=== PATIENT | female | born 1930 | race Caucasian/White ===

== ENCOUNTER 2016-09-17 16:23 | Emergency (ER) | payer OTHER ==
[2016-09-17 16:39] VITALS: BP 167/87; PULSE 99; TEMP 98.1; BMI 19.9
--- NOTE | 2016-09-17 16:45 | PDOC ---
History of Present Illness - General History Source: Family, [facility] Records Exam Limitations: No Limitations <Cedrick William - Last Filed: 09/17/16 18:46> - History of Present Illness Initial Comments: 09/17/16 16:48 Patient is an 85 year old female with significant medical hx of dementia, HTN, HLD, AFib (on coumadin), CAD s/p CABG, CKD, CHF, GERD, prior CVA, two cerebral aneurysms (no surgery), seizure disorder, and hypothyroidism who is presenting to the ED via EMS from [facility] s/p fall. The patient tripped and fell, hitting her head on the floor of the [facility]. She was observed to have blood coming out of her nostril. The patient complains of pain to the bridge of her nose where she sustained a small abrasion. Patient also endorses some dizziness and lightheadedness prior to fall. Denies any LOC or chest pain. Patient was sent to the ED for head CT to r/o head trauma. Patient's last coumadin check was on 09/15 and was found at 2.3. Surgical Hx: aortic bypass graft <Darleen Howard - Last Filed: 09/17/16 19:05> - General Chief Complaint: Injury Stated Complaint: FALL Time Seen by Provider: 09/17/16 16:34 Past History - Past Medical History Cardiac Disorders: Yes (afib, cad) Dementia: Yes HTN: Yes Hypercholesterolemia: Yes Psychiatric Problems: Yes Seizures: Yes Thyroid Disease: Yes - Surgical History Cardiac Surgery: Yes (aortic bypass graft) - Psycho/Social/Smoking Cessation Hx Anxiety: No Suicidal Ideation: No Smoking History: Never smoked Have you smoked in the past 12 months: No Information on smoking cessation initiated: No Hx Alcohol Use: No Drug/Substance Use Hx: No <Cedrick William - Last Filed: 09/17/16 18:46> <Darleen Howard - Last Filed: 09/17/16 19:05> - Past Medical History Allergies/Adverse Reactions: Allergies Allergy/AdvReac Type Severity Reaction Status Date / Time amlodipine besylate Allergy Verified 12/16/15 16:44 [From [facility]] atenolol Allergy Verified 12/16/15 16:43 codeine Allergy Verified 12/16/15 16:43 morphine Allergy Verified 12/16/15 16:43 nifedipine Allergy Verified 12/16/15 16:43 ramipril Allergy Verified 12/16/15 16:43 Home Medications: Ambulatory Orders Acetaminophen [Pain Relief] 650 mg PO DAILY 12/16/15 Divalproex *ER* [Depakote *ER* -] 250 mg PO BID 12/16/15 Docusate Sodium [Colace -] 200 mg PO HS 12/16/15 Hydralazine HCl [Apresoline -] 25 mg PO DAILY 12/16/15 Levetiracetam [Keppra] 500 mg PO BID 12/16/15 Levothyroxine [Synthroid -] 150 mcg PO DAILY 12/16/15 Mirtazapine 15 mg PO HS 12/16/15 Multivitamin [Poly-Vitamin] 1 each PO DAILY 12/16/15 Pantoprazole Sodium [Protonix] 40 mg PO DAILY 12/16/15 Simvastatin [Zocor -] 40 mg PO HS 12/16/15 Warfarin Sodium [Coumadin] 1 mg PO HS 12/16/15 Review of Systems - Review of Systems Comments:: 09/17/16 17:49 ROS By son: GENERAL/CONSTITUTIONAL: Fall. No fever or chills. No weakness. HEAD, EYES, EARS, NOSE AND THROAT: Pain to the bridge of the nose. No change in vision. No ear pain or discharge. No sore throat. CARDIOVASCULAR: No chest pain or shortness of breath. RESPIRATORY: No cough, wheezing, or hemoptysis. GASTROINTESTINAL: No nausea, vomiting, diarrhea or constipation. GENITOURINARY: No dysuria, frequency, or change in urination. MUSCULOSKELETAL: No joint or muscle swelling or pain. No neck or back pain. SKIN: No rash NEUROLOGIC: No headache, vertigo, loss of consciousness, or change in strength/ sensation. <Darleen Howard - Last Filed: 09/17/16 19:05> *Physical Exam - Vital Signs Last Vital Signs Temp Pulse Resp BP Pulse Ox 98.1 F 99 H 20 167/87 100 09/17/16 16:37 09/17/16 16:37 09/17/16 16:37 09/17/16 16:37 09/17/16 16:37 <Cedrick William - Last Filed: 09/17/16 18:46> - Vital Signs Last Vital Signs Temp Pulse Resp BP Pulse Ox 98.1 F 99 H 20 167/87 100 09/17/16 16:37 09/17/16 16:37 09/17/16 16:37 09/17/16 16:37 09/17/16 16:37 - Physical Exam Comments: 09/17/16 17:44 GENERAL: Patient is awake, alert and in no acute distress. Speech is clear and appropriate. HEAD: Nontender. HEENT: Pupils are equal round and reactive to light, extraocular movements are intact. The tympanic membranes are clear, no hemotympanum. No facial deformity. No facial bone step-off. Small abrasion to the bridge of the nose. The oropharynx is clear. NECK: The trachea is midline, there is no stridor. There is no midline cervical spine tenderness, full range of motion of neck. CHEST: Non-tender, no ecchymosis or abrasions. Equal chest wall expansion bilaterally. No flail segments. Lungs are clear to auscultation bilaterally. CARDIOVASCULAR: S1-S2, regular rate and rhythm. No murmurs or rubs. ABDOMEN: Soft, nontender, nondistended. Bowel sounds are normoactive. There is no abdominal or flank ecchymosis. BACK/PELVIS: There is no midline thoracic or lumbosacral spine tenderness or step-off. Pelvis is stable and nontender. EXTREMITIES: There is no extremity deformity or joint swelling. No focal bony tenderness throughout. 2+ distal pulses throughout. NEURO: Alert and oriented x1 (dementia). Cranial nerves II through XII are intact. 5 out of 5 motor strength x4 extremities. No gross sensory deficits. Finger-nose- finger is intact. No pronator drift. Gait is stable. SKIN: No abrasions, hematomas, lacerations. PSYCH: Affect is appropriate <Darleen Howard - Last Filed: 09/17/16 19:05> ED Treatment Course - RADIOLOGY Radiology Studies Ordered: Category Date Time Status FACIAL BONES CT W/O CONTRAST [CT] Stat CT Scan 09/17/16 16:[address] WITHOUT CONTRAST [CT] Stat CT Scan 09/17/16 16:40 Ordered <Cedrick William - Last Filed: 09/17/16 18:46> - RADIOLOGY Radiograph Interpretation: 09/17/16 18:[address] Impression: See discussion. No significant interval change. No acute intracranial pathology is identified. Mild soft tissue swelling/hematoma over left side of the forehead. Facial Bones CT Impression: Nondepressed fracture in the right side of the nasal bone. No other gross fracture is identified. Mild soft tissue swelling over the forehead, left more the right. Cervical Spine CT Impression: The alignment is satisfactory. No gross fracture or subluxation is seen. Asymmetric slightly prominent right lingual tonsil relative to the left. Please correlate with ENT evaluation/physical exam. Reported By: Michelle Cloud <Darleen Howard - Last Filed: 09/17/16 19:05> Medical Decision Making - Medical Decision Making 09/17/16 16:42 A portion of this note was written by my scribe, under my supervision. Vital Signs Temp Pulse Resp BP Pulse Ox 98.1 F 99 H 20 167/87 100 09/17/16 16:37 09/17/16 16:37 09/17/16 16:37 09/17/16 16:37 09/17/16 16:37 85 year old female c/ [facility]h thyroid dz, dementia, HTN, GERD, cerebral aneurysms, afib on coumadin, HTN, CAD, CABG, CKD, prior CVA, seizure disorder, last coumadin check with intermediate documentation on 09/15 at 2.3. Pt had a mechanical fall at intermediate. Witnessed at NH. No LOC. Had a small amount of epistaxis now resolved. Pt's son, Arturo, at bedside who states that patient is at her mental baseline (dementia). Will perform head CT, cervical spine CT, and facial CT. Reassess. 09/17/16 18:38 CAT scan demonstrates no acute fractures or hemorrhage. There is a mild right lingual tonsil enlargement. Also noted is nondepressed nasal fracture. However no other findings. Results given to the patient's son. Including the finding of incidental right middle tonsil. We'll have this follow-up at the intermediate. Review bleeding precautions and concussion precautions given. The son is aware. Will send back to SNF. I discussed the physical exam findings, ancillary test results and final diagnoses with the patient. I answered all of the patient's questions. The patient was satisfied with the care received and felt comfortable with the discharge plan and treatment plan. The patient will call their primary care physician within 24 hours to arrange follow-up and will return to the Emergency Department with any new, persistant or worsening symptoms. <Cedrick William - Last Filed: 09/17/16 18:46> *DC/Admit/Observation/Transfer - Discharge Dispostion Admit: No <Cedrick William - Last Filed: 09/17/16 18:46> - Attestations Scribe Attestion: 09/17/16 17:48 Documentation prepared by Darleen Howard, acting as medical services assistant for Cedrick William MD. <Darleen Howard - Last Filed: 09/17/16 19:05> Diagnosis at time of Disposition: Fall Qualifiers: Encounter type: initial encounter Qualified Code(s): W19.XXXA - Unspecified fall, initial encounter - Discharge Dispostion Disposition: LONGTERM FACILITY Condition at time of disposition: Stable - Referrals Referrals: Michael Brooks [Primary Care Provider] - - Patient Instructions Printed Discharge Instructions: How to Prevent Falls, DI for Closed Head Injury Additional Instructions: The head CT, cervical spine CT and facial CT done [place] no bleeding. However, there is a nondepressed nasal fracture. Please follow-up with the ENT doctor. Any time there is a fall and patient is on Coumadin, there is always a chance of rebleeding. Please observe the patient in the intermediate and if there is any changes in the mental status, persistent vomiting, uncontrollable headaches , please return to the ER for repeat head CT.
== END 2016-09-17 20:35 ==
LOC: JER 16:23
DX: S02.2XXA Fracture of nasal bones, initial encounter for closed fracture (principal); S00.83XA Contusion of other part of head, initial encounter; W18.39XA Other fall on same level, initial encounter; Y93.89 Activity, other specified; Y92.128 Other place in nursing home as the place of occurrence of the external cause; I25.10 Atherosclerotic heart disease of native coronary artery without angina pectoris; I13.0 Hypertensive heart and chronic kidney disease with heart failure and stage 1 through stage 4 chronic kidney disease, or unspecified chronic kidney disease; N18.9 Chronic kidney disease, unspecified; I50.30 Unspecified diastolic (congestive) heart failure; Z95.1 Presence of aortocoronary bypass graft; I48.91 Unspecified atrial fibrillation; Z79.01 Long term (current) use of anticoagulants; G40.909 Epilepsy, unspecified, not intractable, without status epilepticus; E03.9 Hypothyroidism, unspecified; K21.9 Gastro-esophageal reflux disease without esophagitis; Z86.73 Personal history of transient ischemic attack (TIA), and cerebral infarction without residual deficits; F03.90 Unspecified dementia, unspecified severity, without behavioral disturbance, psychotic disturbance, mood disturbance, and anxiety
CPT/HCPCS: 70450-TC; 70486-TC; 72125-TC; 99281-25

== ENCOUNTER 2017-09-14 19:24 | Emergency (ER) | payer OTHER ==
[2017-09-14 20:53] VITALS: BP 158/68; PULSE 78; TEMP 97.6; BMI 25.3
--- NOTE | 2017-09-14 20:58 | PDOC ---
History of Present Illness - General History Source: Assisted Records Exam Limitations: Dementia - History of Present Illness Initial Comments: 09/14/17 21:14 The patient is an 86 year old female from [facility] with past medical history of hypertension, atrial fibrillation (on Xarelto) CAD, sick sinus syndrome, hyperlipidemia, hypothyroidism, CKD, major depressive disorder , anxiety, and dementia BIBA after mechanical fall. As per prison staff, the patient normally ambulates with a walker. This evening she was found laying by a wall without a walker with an open laceration on her occipital head. She was found at her normal baseline. The staff also reports she was recently started on melatonin because she was not sleeping. No further history can be provided by the patient due to her dementia. <Sharla Tai - Last Filed: 09/15/17 01:45> <Ada Landis - Last Filed: 09/15/17 02:15> - General Chief Complaint: Injury Stated Complaint: FALL Time Seen by Provider: 09/14/17 20:40 Past History <Sharla Tai - Last Filed: 09/15/17 01:45> - Past Medical History Cardiac Disorders: Yes (afib, cad) Dementia: Yes HTN: Yes Hypercholesterolemia: Yes Psychiatric Problems: Yes Seizures: Yes Thyroid Disease: Yes - Surgical History Cardiac Surgery: Yes (aortic bypass graft) - Suicide/Smoking/Psychosocial Hx Smoking History: Unknown if ever smoked Have you smoked in the past 12 months: No Information on smoking cessation initiated: No Hx Alcohol Use: No Drug/Substance Use Hx: No <Ada Ladnis - Last Filed: 09/15/17 02:15> - Past Medical History Allergies/Adverse Reactions: Allergies Allergy/AdvReac Type Severity Reaction Status Date / Time amlodipine besylate Allergy Verified 09/14/17 20:06 [From [facility]] atenolol Allergy Verified 09/14/17 20:06 codeine Allergy Verified 09/14/17 20:06 morphine Allergy Verified 09/14/17 20:06 nifedipine Allergy Verified 09/14/17 20:06 ramipril Allergy Verified 09/14/17 20:06 Home Medications: Ambulatory Orders Acetaminophen [Pain Relief] 650 mg PO DAILY 12/16/15 Docusate Sodium [Colace -] 200 mg PO HS 12/16/15 Levetiracetam [Keppra] 500 mg PO BID 12/16/15 Levothyroxine [Synthroid -] 150 mcg PO DAILY 12/16/15 Mirtazapine 15 mg PO HS 12/16/15 Multivitamin [Poly-Vitamin] 1 each PO DAILY 12/16/15 Pantoprazole Sodium [Protonix] 40 mg PO DAILY 12/16/15 Simvastatin [Zocor -] 40 mg PO HS 12/16/15 hydrALAZINE HCL [Apresoline -] 25 mg PO DAILY 12/16/15 Acetaminophen [Pain Relief] 650 mg PO BID 09/14/17 Cholecalciferol (Vitamin D3) [Vitamin D3] 1,000 unit PO DAILY 09/14/17 Melatonin 3 mg PO HS 09/14/17 Quetiapine Fumarate [Seroquel -] 25 mg PO HS 09/14/17 Rivaroxaban [Xarelto -] 15 mg PO DAILY 09/14/17 Cephalexin Monohydrate [Keflex -] 500 mg PO BID #14 capsule 09/15/17 Review of Systems - Review of Systems Able to Perform ROS?: No (dementia) <Sharla Tai - Last Filed: 09/15/17 01:45> *Physical Exam - Vital Signs Last Vital Signs Temp Pulse Resp BP Pulse Ox 97.6 F 78 19 158/68 98 09/14/17 20:01 09/14/17 20:01 09/14/17 20:01 09/14/17 20:01 09/14/17 20:01 - Physical Exam Comments: 09/14/17 21:14 GENERAL: demented (but at baseline), tearful. Awake. HEAD: 1.5 cm linear laceration to top of occiput EYES: PERRLA, EOMI, sclera anicteric, conjunctiva clear ENT: Auricles normal inspection, hearing grossly normal, nares patent, oropharynx clear without exudates. Moist mucosa NECK: Normal ROM, supple, no lymphadenopathy, JVD, or masses LUNGS: Breath sounds equal, clear to auscultation bilaterally. No wheezes, and no crackles HEART: Regular rate and rhythm, normal S1 and S2, no murmurs, rubs or gallops ABDOMEN: Soft, superpubic tenderness on palpation, normoactive bowel sounds. No guarding, no rebound. No masses EXTREMITIES: Normal range of motion, no edema. No clubbing or cyanosis. No cords, erythema, or tenderness NEUROLOGICAL: Cranial nerves II through XII grossly intact. Normal speech, normal gait SKIN: Warm, Dry, normal turgor, no rashes or lesions noted. <GeovannimoreSharla - Last Filed: 09/15/17 01:45> - Vital Signs Last Vital Signs Temp Pulse Resp BP Pulse Ox 97.6 F 78 19 158/68 98 09/14/17 20:01 09/14/17 20:01 09/14/17 20:01 09/14/17 20:01 09/14/17 20:01 <Ada Landis - Last Filed: 09/15/17 02:15> Procedures - Laceration/Wound Repair Posterior Occipital Wound Length: to 2.5 cm Wound Explored: clean Wound's Depth, Shape: superficial Irrigated w/ Saline: Yes Betadine Prep: No Wound Debrided: minimal Wound Repaired With: Radha Number of Sutures: 3 (radha) Progress: 09/15/17 02:06 pt tolerated the procedure well <Ada Landis - Last Filed: 09/15/17 02:15> Heart Score/ECG Review - ECG Intrepretation Comment:: 09/15/17 00:46 afib at 99, nl axis, q waves anterior leads that are age indeterminate, no acute st/t wave findings <Ada Landis - Last Filed: 09/15/17 02:15> ED Treatment Course - LABORATORY CBC & Chemistry Diagram: 09/14/17 21:45 09/14/17 21:45 - RADIOLOGY Radiograph Interpretation: 09/15/17 00:27 Chest X-ray as reviewed by Dr. Cloud reports cardiomegaly and mild pulmonary venous congestion and/ or interstitial infiltrates, mainly in left lower lobe DATE OF SERVICE: 2017-09-15 01:11:38 IMAGES: 171 EXAM: HEAD CT WITHOUT CONTRAST HISTORY: Fall. Headache. COMPARISON: None. FINDINGS: No hemorrhage. Old right temporoparietal infarct. Involutional changes with moderate ventriculomegaly. Chronic microvascular changes in the cerebral white matter. Osseous structures are intact THIS DOCUMENT HAS BEEN ELECTRONICALLY SIGNED Al Leach MD <Sharla Tai - Last Filed: 09/15/17 01:45> - LABORATORY CBC & Chemistry Diagram: 09/14/17 21:45 09/14/17 21:45 <Ada Landis - Last Filed: 09/15/17 02:15> Medical Decision Making - Medical Decision Making 09/14/17 22:20 a/p: 86yo demented pt with a mechanical fall at the facility -spoke with the nurse caring for the patient, patient usually walks with a walker -the nurse found her on the ground next to the wall with a lac to the back of her head, at baseline MS and a few feet away from her walker at the facility -on xarelto -no active bleeding from wound -will need radha to back of her head -tetanus UTD per transfer paperwork -will obtain head and c spine ct -will send labs given fall on xarelto -will monitor in ED for 6 hours given head injury - if patient states at baseline MS then ok to transfer back to facility after ED monitoring 09/15/17 01:58 no acute findings on head ct pending ct c spine ua + will treat with keflex 09/15/17 02:12 pt has been endoresed to the oncoming ED physician pending ct cervical spine discussed with imaging formulation scientist and with CT techs - retrying to send the scan <Ada Landis - Last Filed: 09/15/17 02:15> *DC/Admit/Observation/Transfer - Attestations Scribe Attestion: 09/14/17 21:22 Documentation prepared by Sharla Tai, acting as medical assembly for Ada Landis DO. <Sharla Tai - Last Filed: 09/15/17 01:45> - Discharge Dispostion Decision to Admit order: No - Attestations Physician Attestion: 09/15/17 02:15 I, Dr. Ada Landis DO, attest that this document has been prepared under my direction and personally reviewed by me in its entirety. I further attest, that it accurately reflects all work, treatment, procedures and medical decision -making performed by me. <Ada Landis - Last Filed: 09/15/17 02:15> Diagnosis at time of Disposition: Fall, Scalp laceration, Closed head injury, UTI (urinary tract infection) - Discharge Dispostion Disposition: [facility]AC[facility] Condition at time of disposition: Fair - Prescriptions Prescriptions: Cephalexin Monohydrate [Keflex -] 500 mg PO BID #14 capsule - Patient Instructions Printed Discharge Instructions: DI for Closed Head Injury, DI for Urinary Tract Infection (UTI), DI for Laceration Repair -- [place] Additional Instructions: Please remove the radha in 1 week. Please keep the wound clean and dry. Please return to the Ed with any further concerns or complaints.
[2017-09-14 21:54] LABS: BASO % 0.5 % (0-2.0); EOS % 3.8 % (0-4.5); HEMATOCRIT 32.7 % (32.4-45.2); HEMOGLOBIN 10.7 GM/dL (10.7-15.3); LYMPH % 16.3 % (8-40); MCHC 32.6 g/dl (32.0-36.0); MEAN CELL VOLUME 95.3 fl (80-96); MEAN PLT VOLUME 9.3 fl (7.5-11.1); NEUT % 71.4 % (42.8-82.8); PLATELET COUNT 180 K/MM3 (134-434); RBC 3.44 M/mm3 (3.60-5.2); RDW 15.4 % (11.6-15.6); WHITE BLOOD COUNT 8.3 K/mm3 (4.0-10.0)
[2017-09-14] MEDS ORDERED: QUEtiapine FUMARATE 25 MG TABLET (FP) PO ONE (22:07)
[2017-09-14] MEDS ORDERED: MIRTAZAPINE 15 MG TABLET (FP) PO ONE (22:08)
[2017-09-14] MEDS ORDERED: QUEtiapine FUMARATE 25 MG TABLET (FP) ONE (22:11)
[2017-09-14] MEDS ORDERED: MIRTAZAPINE 15 MG TABLET (FP) ONE (22:11)
[2017-09-14 22:14] LABS: INR 1.66 (0.82-1.09); PROTHROMBIN TIME (PATIENT) 18.8 SEC (9.7-13.0)
[2017-09-14 22:16] LABS: ACTIVATED PTT 34.9 SECONDS (26.9-34.4)
[2017-09-14 22:26] LABS: ALBUMIN 3.7 g/dl (3.4-5.0); ANION GAP 7 (8-16); BILIRUBIN,TOTAL 0.3 mg/dL (0.2-1.0); BLOOD UREA NITROGEN 32 mg/dL (7-18); CALCIUM 8.9 mg/dL (8.5-10.1); CHLORIDE 107 mmol/L (98-107); CO2 29 mmol/L (21-32); CREATININE 1.6 mg/dL (0.55-1.02); GLUCOSE,RANDOM 120 mg/dL (74-106); POTASSIUM 4.1 mmol/L (3.5-5.1); SGOT/AST 14 U/L (15-37); SGPT/ALT 13 U/L (12-78); SODIUM 143 mmol/L (136-145)
[2017-09-14 22:28] LABS: ALK PHOS 121 U/L (45-117); TOT PROT 7.8 g/dl (6.4-8.2)
[2017-09-14 23:31] LABS: URINE APPEARANCE SLCLOUDY; URINE BILIRUBIN NEGATIVE (<2.0 mg/dL); URINE COLOR YELLOW; URINE GLUCOSE (UA) NEGATIVE (NEGATIVE); URINE KETONE NEGATIVE (NEGATIVE); URINE NITRITE NEGATIVE (NEGATIVE); URINE PROTEIN NEGATIVE (NEGATIVE); URINE UROBILINOGEN NEGATIVE mg/dL (0.2-1.0)
[2017-09-14 23:32] LABS: URINE LEUK ESTERASE 1+ (NEGATIVE)
[2017-09-14 23:38] LABS: EPI CELLS RARE /HPF (FEW); URINE MUCUS RARE
[2017-09-14] MEDS ORDERED: CEPHALEXIN MONOHYDRATE 500 MG CAPSULE (UD) PO ONE (23:49)
[2017-09-15] MEDS ORDERED: CEPHALEXIN MONOHYDRATE 500 MG CAPSULE (UD) ONE (02:46)
--- NOTE | 2017-09-15 11:43 | EKG ---
Test Reason : Blood Pressure : / mmHG Vent. Rate : 099 BPM Atrial Rate : 100 BPM P-R Int : 000 ms QRS Dur : 098 ms QT Int : 352 ms P-R-T Axes : 000 053 268 degrees QTc Int : 451 ms ATRIAL FIBRILLATION WITH PREMATURE VENTRICULAR OR ABERRANTLY CONDUCTED COMPLEXES ANTEROSEPTAL INFARCT (CITED ON OR BEFORE 16-DEC-2015) ABNORMAL ECG WHEN COMPARED WITH ECG OF 16-DEC-2015 16:59, ATRIAL FIBRILLATION HAS REPLACED JUNCTIONAL RHYTHM VENT. RATE HAS INCREASED BY 35 BPM MINIMAL CRITERIA FOR INFERIOR INFARCT ARE NO LONGER PRESENT ST NOW DEPRESSED IN INFERIOR LEADS T WAVE INVERSION LESS EVIDENT IN LATERAL LEADS Confirmed by CARLITOS QUEEN, ASHLEY ([id number]) on 09/15/2017 11:43:15 AM Referred By: Confirmed By:ASHLEY URBINA MD
== END 2017-09-15 05:30 ==
LOC: JER 19:24
PROC: 0HQ0XZZ Repair Scalp Skin, External Approach (ICD-10-PCS; principal; 2017-09-14)
DX: S01.01XA Laceration without foreign body of scalp, initial encounter (principal); W18.39XA Other fall on same level, initial encounter; Y93.89 Activity, other specified; Y92.128 Other place in nursing home as the place of occurrence of the external cause; Y99.8 Other external cause status; I48.91 Unspecified atrial fibrillation; Z79.01 Long term (current) use of anticoagulants; I10 Essential (primary) hypertension; I49.5 Sick sinus syndrome; E78.5 Hyperlipidemia, unspecified; E03.9 Hypothyroidism, unspecified; I12.9 Hypertensive chronic kidney disease with stage 1 through stage 4 chronic kidney disease, or unspecified chronic kidney disease; N18.9 Chronic kidney disease, unspecified; F33.9 Major depressive disorder, recurrent, unspecified; F03.90 Unspecified dementia, unspecified severity, without behavioral disturbance, psychotic disturbance, mood disturbance, and anxiety; F41.9 Anxiety disorder, unspecified; G40.909 Epilepsy, unspecified, not intractable, without status epilepticus; R26.89 Other abnormalities of gait and mobility; Z99.89 Dependence on other enabling machines and devices
CPT/HCPCS: 36415; 70450-TC; 71045-TC-FY; 72125-TC; 80053; 81003; 81015; 85025; 85610; 85730; 93005; 93010; 99282-25

== ENCOUNTER 2018-03-24 12:19 | Inpatient (IN) | payer OTHER ==
[2018-03-24 12:29] VITALS: BMI 26.5
[2018-03-24] MEDS ORDERED: SODIUM CHLORIDE 1,000 ML IV SCH (12:45)
--- NOTE | 2018-03-24 13:06 | PDOC ---
History of Present Illness - General Chief Complaint: Altered Mental Status Stated Complaint: FALL Time Seen by Provider: 03/24/18 12:30 History Source: Family, Shelter Records - History of Present Illness Initial Comments: 03/24/18 12:58 87F from [facility] with h/o strokes, aneurysms and htn, sent to Er with right facial and right arm paralysis after fall last night around 2am. [place] called son around 6:30am, and 8:30 to let him know. Patient is non-verbal at baseline. She is lying on stretcher with eye closed and left arm curled on chest. Past History - Past Medical History Allergies/Adverse Reactions: Allergies Allergy/AdvReac Type Severity Reaction Status Date / Time amlodipine besylate Allergy Verified 03/24/18 12:29 [From [facility]] atenolol Allergy Verified 03/24/18 12:29 codeine Allergy Verified 03/24/18 12:29 morphine Allergy Verified 03/24/18 12:29 nifedipine Allergy Verified 03/24/18 12:29 ramipril Allergy Verified 03/24/18 12:29 Home Medications: Ambulatory Orders Acetaminophen [Pain Relief] 650 mg PO DAILY 12/16/15 Docusate Sodium [Colace -] 200 mg PO HS 12/16/15 Levetiracetam [Keppra] 500 mg PO BID 12/16/15 Levothyroxine [Synthroid -] 150 mcg PO DAILY 12/16/15 Mirtazapine 15 mg PO HS 12/16/15 Multivitamin [Poly-Vitamin] 1 each PO DAILY 12/16/15 Pantoprazole Sodium [Protonix] 40 mg PO DAILY 12/16/15 Simvastatin [Zocor -] 40 mg PO HS 12/16/15 hydrALAZINE HCL [Apresoline -] 25 mg PO DAILY 12/16/15 Acetaminophen [Pain Relief] 650 mg PO BID 09/14/17 Cholecalciferol (Vitamin D3) [Vitamin D3] 1,000 unit PO DAILY 09/14/17 Melatonin 3 mg PO HS 09/14/17 Quetiapine Fumarate [Seroquel -] 25 mg PO HS 09/14/17 Rivaroxaban [Xarelto -] 15 mg PO DAILY 09/14/17 Cephalexin Monohydrate [Keflex -] 500 mg PO BID #14 capsule 09/15/17 Cardiac Disorders: Yes (afib, cad) COPD: No Dementia: Yes HTN: Yes Hypercholesterolemia: Yes Psychiatric Problems: Yes Seizures: Yes Thyroid Disease: Yes - Surgical History Cardiac Surgery: Yes (aortic bypass graft) - Suicide/Smoking/Psychosocial Hx Smoking History: Never smoked Have you smoked in the past 12 months: No Hx Alcohol Use: No Drug/Substance Use Hx: No Review of Systems - Review of Systems Able to Perform ROS?: No *Physical Exam - Vital Signs Last Vital Signs Temp Pulse Resp BP Pulse Ox 52 L 16 176/58 H 100 03/24/18 12:20 03/24/18 12:20 03/24/18 12:20 03/24/18 12:20 - Physical Exam General Appearance: Yes: Thin HEENT: positive: EOMI, DAYDAY, Normal ENT Inspection Respiratory/Chest: positive: Lungs Clear, Normal Breath Sounds. negative: Chest Tender, Respiratory Distress Cardiovascular: positive: Regular Rhythm, S1, S2, Bradycardia Gastrointestinal/Abdominal: positive: Tender, Flat. negative: Normal Bowel Sounds Integumentary: positive: Normal Color, Dry, Warm Neurologic: positive: Respond to painful stimul, Facial Droop (right), Babinski (+ b/l) NIH Stroke Scale - Last Known Well Date/Time & Onset Date Last Known Well: 03/23/18 Time Last Known Well: 20:00 - Initial Evaluation Level of consciousness: Not alert, requires repeat stimulation to attend Ask patient the month and their age: Both incorrect Ask patient to open & close eyes; make fist and let go: Both incorrect Best gaze (horizontal eye movement): Normal Visual field testing: Bilateral hemianopia (blind including cortical blindness) Facial paresis (Show teeth/raise eyebrows/close eyes tight): Complete paralysis of one or both sides (Upper and lower face) Motor Function: Left Arm: Normal Motor Function: Right Arm: No effort against gravity Motor Function: Left Leg: No effort against gravity Motor Function: Right Leg: No effort against gravity Limb Ataxia: Untestable (Joint fused or limb amputated), explain: Sensory(Use pinprick test arms,legs,trunk,face/side to side): Mild to moderate decrease in sensation Best language (Describe picture, name items, read sentences): Mute Dysarthria (read several words): Near unintelligible or unable to speak Extinction and Inattention: Profound jimena-inattention or extinction to more than one modality - Total Score NIH Stroke Scale Score: 29 Critical Care Time/MDM Note - Medical Decision Making Note: 03/24/18 13:17 Patient is DNR/DNI per documentation and son presents. Patient non-responsive except pain. Patient sent to CT head to r/o stroke, will send labs to r/o for metabolic disorder. CT head + for acute stroke: Interval large left middle cerebral artery territory acute/subacute infarct with involvement of the left basal ganglia and minimal mass effect on the left lateral ventricle without shift of the midline structures. Note is made of left middle cerebral artery hyperdense sign No acute intracranial hemorrhage is seen. Right posterior frontal/parietal chronic infarct again seen. Spoke to Dr. Gaspar, Neurologist who agree that patient should be admitted. Spoke to son who is the health care proxy, confirmed that patient does not want any surgery as written in DNR statement when patient was able to at the time. Will admit to med surg stroke for comfort care under Dr. Rhoades *DC/Admit/Observation/Transfer Diagnosis at time of Disposition: Ischemic stroke - Discharge Dispostion Condition at time of disposition: Stable Decision to Admit order: Yes - Referrals - Patient Instructions - Post Discharge Activity
[2018-03-24 13:21] LABS: URINE APPEARANCE CLEAR; URINE BILIRUBIN NEGATIVE (<2.0 mg/dL); URINE COLOR LTYELLOW; URINE GLUCOSE (UA) NEGATIVE (NEGATIVE); URINE KETONE NEGATIVE (NEGATIVE); URINE LEUK ESTERASE NEGATIVE (NEGATIVE); URINE NITRITE NEGATIVE (NEGATIVE); URINE PROTEIN NEGATIVE (NEGATIVE); URINE UROBILINOGEN NEGATIVE mg/dL (0.2-1.0)
--- NOTE | 2018-03-24 14:08 | CON.NEURO ---
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 halfway staff found the patient on the [id number] was called patient was brought into the hospital. Neurology was consulted upon with the stroke protocol I spoke to the emergency room doctor at1:40 PM due to the patient extent of the stroke and positive left MCA stroke on the CAT scan patient was not a candidate for intravenous thrombolysis, mercy device, or transfer to a tertiary Medical Center. I was informed that the patient is DNR/ DNI. Also the patient had a history of cardiac arrhythmia and she was on anticoagulation. I saw the patient in the emergency room. - History Source History Provided By: Medical Record Limitations to Obtaining History: Clinical Condition - Alcohol/Substance Use Hx Alcohol Use: No - Smoking History Smoking history: Never smoked Have you smoked in the past 12 months: No Home Medications - Allergies Allergies/Adverse Reactions: Allergies Allergy/AdvReac Type Severity Reaction Status Date / Time amlodipine besylate Allergy Verified 03/24/18 12:29 [From [facility]] atenolol Allergy Verified 03/24/18 12:29 codeine Allergy Verified 03/24/18 12:29 morphine Allergy Verified 03/24/18 12:29 nifedipine Allergy Verified 03/24/18 12:29 ramipril Allergy Verified 03/24/18 12:29 - Home Medications Home Medications: Ambulatory Orders Acetaminophen [Pain Relief] 650 mg PO DAILY 12/16/15 Docusate Sodium [Colace -] 200 mg PO HS 12/16/15 Levetiracetam [Keppra] 500 mg PO BID 12/16/15 Levothyroxine [Synthroid -] 150 mcg PO DAILY 12/16/15 Mirtazapine 15 mg PO HS 12/16/15 Multivitamin [Poly-Vitamin] 1 each PO DAILY 12/16/15 Pantoprazole Sodium [Protonix] 40 mg PO DAILY 12/16/15 Simvastatin [Zocor -] 40 mg PO HS 12/16/15 hydrALAZINE HCL [Apresoline -] 25 mg PO DAILY 12/16/15 Cholecalciferol (Vitamin D3) [Vitamin D3] 1,000 unit PO DAILY 09/14/17 Melatonin 3 mg PO HS 09/14/17 Rivaroxaban [Xarelto -] 15 mg PO DAILY 09/14/17 Physical Exam-Neuro Vital Signs: Vital Signs Temperature Pulse Rate 48 L 03/24/18 13:20 Respiratory Rate 16 03/24/18 13:20 Blood Pressure 158/91 03/24/18 13:20 O2 Sat by Pulse Oximetry (%) 97 03/24/18 13:20 Constitutional: Yes: Well Nourished Neck: Yes: WNL - Neuro Exam Level Of Consciousness: Yes: Obtunded Eyes: Yes: PERRLA Speech: Other Dominant Hand: Right Cranial Nerves II-XII Intact: No Gag: Absent DTR's: 1+ Left Bicep, 1+ Right Bicep, 1+ Left Brachioradialis, 1+ Right Brachioradialis Babinski: Present Motor Strength: 0/5: Right Arm, Right Leg, 2/5: Left Arm Gait: Deferred NIH Stroke Scale - Last Known Well Date/Time & Onset Date Last Known Well: 03/23/18 Time Last Known Well: 06:00 - Initial Evaluation Level of consciousness: Not alert, requires repeat stimulation to attend Ask patient the month and their age: Both incorrect Ask patient to open & close eyes; make fist and let go: Both incorrect Best gaze (horizontal eye movement): Forced deviation Visual field testing: Partial hemianopia Facial paresis (Show teeth/raise eyebrows/close eyes tight): Minor paralysis ( flattened nasolabial fold, asymmetry on smiling) Motor Function: Left Arm: Some effort against gravity Motor Function: Right Arm: No effort against gravity Motor Function: Left Leg: Some effort against gravity Motor Function: Right Leg: No effort against gravity Limb Ataxia: Untestable (Joint fused or limb amputated), explain: Sensory(Use pinprick test arms,legs,trunk,face/side to side): Severe to total sensory loss Best language (Describe picture, name items, read sentences): Severe aphasia Dysarthria (read several words): Intubated or other physical barrierr, explain: Extinction and Inattention: Inattention or extinction bilaterally to one of the sensory modalities - Total Score NIH Stroke Scale Score: 25 Imaging - Results Cat Scan: Image Reviewed Problem List - Problems (1) Stroke Assessment/Plan: large left MCA ischemic stroke riskof strokes are prior CVA cardiac arrhythmia age 1. Neuro checks every hour 2. Not a candidate for TPA 3. Repeat CAT scan in 24 hours 4. NPO 5. Tight BP control target mean 110 6. PT 7. ASA per rectum 8. Prognosis guarded for any good recovery case discussed with son Code(s): I63.9 - CEREBRAL INFARCTION, UNSPECIFIED
--- NOTE | 2018-03-24 14:34 | PDOC ---
Attending Attestation - Resident Resident Name: Jonathan Corcoran - ED Attending Attestation I have performed the following: I have examined & evaluated the patient, The case was reviewed & discussed with the resident, I agree w/resident's findings & plan, Exceptions are as noted - HPI HPI: 03/24/18 14:33 The patient is an 87-year-old female with past medical history significant for Afib (on Xarelto), CAD, HTN, HLD, dementia, CKD and hypothyroidism presents to the emergency department from [facility] via EMS with AMS s/p fall. Per [facility], the patient was found on the floor at 2:00 am, unknown details regarding the fall. The son reports he was informed at 6:00 am today. The patient presents to the ED at 12:19p. On arrival, patient is nonverbal with a R facial droop, flaccid RUE, with flicker of movement to RLE. Pt able to localized pain with LUE and LLE. The son reports at baseline the patient is verbal (at times doesnt make sense) and ambulatory. Per the [facility] staff, the pt's last known normal is 8pm and she was found on the ground at 2am. Per [facility] paperwork from the [place], pt is DNR/DNI and does not want surgery or dialysis. HCP per paperwork is her son Patel who is here in the ED and confirms her goals of care. Allergies: amlodipine besylate, atenolol, codeine, morphine, nifedipine, ramipril Social history: None reported. Surgical history: Aortic bypass graft. PCP: From [facility] (Dr. Rhoades/[place]). - Physicial Exam PE: 03/24/18 14:43 GENERAL: eyes closed in NAD HEAD: No signs of trauma EYES: resists opening of L eye, able to easily open R eye. Pupils 3-> 2 equal reactive to light ENT: Auricles normal inspection, nares patent, oropharynx clear without exudates. Moist mucosa NECK: no signs of trauma LUNGS: Breath sounds equal, clear to auscultation bilaterally. No wheezes, and no crackles HEART: bradycardic but regular, rate 50, normal S1 and S2, no murmurs, rubs or gallops ABDOMEN: Soft, non distended, no masses : rectally afebrile EXTREMITIES: 2+ peripheral pulses NEUROLOGICAL: Aphasic, +R facial droop, flaccid RUE, flickers of movements to RLE. Localizes to pain the LUE and LLE SKIN: Warm, Dry, normal turgor, no rashes or lesions noted. - Medical Decision Making 03/24/18 14:49 87yo F with MMP including Afib on xarelto, DNR/DNI presents to the ED with large L MCA stroke. Last known normal was approx 16hrs prior to presentation. Pt is not an INR candidate and out of TPA window. Case discussed with Dr. Gaspar who has evaluated pt and agrees with plan. Case discussed with Dr. Rhoades , pt accepted for admission. Case discussed in detail with admitting physician including history, physical exam and ancillary studies. Admitting physician has assumed care for the patient, will follow all pending diagnostics and will complete the evaluation and treatment. Heart Score/ECG Review #1 03/24/18 14:49 Twelve-lead EKG was performed and reviewed by me. Likely junctional rhythm, rate 48. Normal axis. No ST elevations.
[2018-03-24 14:41] LABS: BASO % 0.2 % (0-2.0); HEMATOCRIT 36.2 % (32.4-45.2); HEMOGLOBIN 11.6 GM/dL (10.7-15.3); LYMPH % 9.3 % (8-40); MCH 30.3 pg (25.7-33.7); MEAN CELL VOLUME 94.7 fl (80-96); MEAN PLT VOLUME 10.4 fl (7.5-11.1); MONO % 4.2 % (3.8-10.2); NEUT % 85.3 % (42.8-82.8); PLATELET COUNT 193 K/MM3 (134-434); RBC 3.82 M/mm3 (3.60-5.2); RDW 15.8 % (11.6-15.6); WHITE BLOOD COUNT 6.6 K/mm3 (4.0-10.0)
[2018-03-24 15:05] LABS: ALBUMIN 3.8 g/dl (3.4-5.0); ALK PHOS 171 U/L (45-117); ANION GAP 8 MMOL/L (8-16); BILIRUBIN,TOTAL 0.5 mg/dL (0.2-1); BLOOD UREA NITROGEN 34 mg/dL (7-18); CALCIUM 9.4 mg/dL (8.5-10.1); CHLORIDE 104 mmol/L (98-107); CHOLESTEROL 131 mg/dL (50-200); CO2 26 mmol/L (21-32); CREATININE 1.2 mg/dL (0.55-1.3); GLUCOSE,RANDOM 111 mg/dL (74-106); HDL CHOLESTEROL 42 mg/dL (40-60); POTASSIUM 4.7 mmol/L (3.5-5.1); SGOT/AST 30 U/L (15-37); SGPT/ALT 21 U/L (13-61); SODIUM 138 mmol/L (136-145); TOT PROT 8.4 g/dl (6.4-8.2); TRIGLYCERIDES 95 mg/dL (0-150)
[2018-03-24 15:27] LABS: INR 1.13 (0.83-1.09); PROTHROMBIN TIME (PATIENT) 13.3 SEC (9.7-13.0)
[2018-03-25 02:31] VITALS: BP 153/69; PULSE 57; TEMP 98.4
--- NOTE | 2018-03-25 03:56 | HOSP ---
Physical Examination Vital Signs: Vital Signs Temperature 98.4 F 03/25/18 02:00 Pulse Rate 57 L 03/25/18 02:00 Respiratory Rate 18 03/25/18 02:00 Blood Pressure 153/69 03/25/18 02:00 O2 Sat by Pulse Oximetry (%) 98 03/24/18 21:00 Labs: CBC, BMP 03/24/18 13:30 03/24/18 13:37 Hospitalist Encounter Assessment: 87 yo correction woman who was admitted on 03/24 for CVA. She was DNR/DNI upon arrival to hospital. Patient was pronounced at 3:35am on 03/25/18 by myself. There was no pulse and patient was not breathing. Cause of was acute CVA. Patient's son- Arturo Fleming (health care proxy was informed). detention -Petty was informed. She will be assessed for organ donation.
--- NOTE | 2018-03-27 23:49 | EKG ---
Test Reason : Blood Pressure : / mmHG Vent. Rate : 048 BPM Atrial Rate : 047 BPM P-R Int : 000 ms QRS Dur : 088 ms QT Int : 522 ms P-R-T Axes : 000 032 -38 degrees QTc Int : 466 ms JUNCTIONAL RHYTHM VS SLOW ATRIAL FIBRILLATION ANTEROSEPTAL INFARCT (CITED ON OR BEFORE 16-DEC-2015) ABNORMAL ECG WHEN COMPARED WITH ECG OF 15-SEP-2017 00:33, VENT. RATE HAS DECREASED BY 51 BPM Confirmed by GE GALAN MD ([id number]) on 03/27/2018 11:48:45 PM Referred By: Confirmed By:GE GALAN MD
== END 2018-03-25 07:30 | disposition expired | DRG 65 ==
LOC: JER 12:19 → JERBED 14:38 → J4S 15:38
PROVIDERS: ADMIT Internal Medicine; ATTEND Internal Medicine
DX: I63.9 Cerebral infarction, unspecified (principal); I69.351 Hemiplegia and hemiparesis following cerebral infarction affecting right dominant side; I25.10 Atherosclerotic heart disease of native coronary artery without angina pectoris; F03.90 Unspecified dementia, unspecified severity, without behavioral disturbance, psychotic disturbance, mood disturbance, and anxiety; Z79.01 Long term (current) use of anticoagulants; I12.9 Hypertensive chronic kidney disease with stage 1 through stage 4 chronic kidney disease, or unspecified chronic kidney disease; N18.9 Chronic kidney disease, unspecified; E78.5 Hyperlipidemia, unspecified; E03.9 Hypothyroidism, unspecified; Z66 Do not resuscitate; H53.47 Heteronymous bilateral field defects; R29.725 NIHSS score 25
CPT/HCPCS: 36415; 70450-TC; 71045-TC-FY; 80053; 81003; 82465; 82550; 83718; 83721; 84478; 84484; 85025; 85610; 86850; 86900; 86901; 93005; 93010; 99285-25; J7030